=== PATIENT | male | born 1955 | race Asian ===

== ENCOUNTER 2022-06-28 06:30 | Emergency (ER) | payer OTHER ==
[~2022-06-28] VITALS: Ht 167.6 cm; Wt 72.6 kg
[2022-06-28 06:38] VITALS: BP 130/77
--- NOTE | 2022-06-28 06:38 | NUR ---
to bed ambulatory
--- NOTE | 2022-06-28 06:45 | NUR ---
Patient is seen by ER MD at the bedside.
--- NOTE | 2022-06-28 07:00 | NUR ---
Patient received on bed lying comfortably and awake. Alert and oriented x4. No acute distress. No complaints of pain or discomfort. Respirations even and unlabored.
--- NOTE | 2022-06-28 07:40 | NUR ---
# 18 FR Moore catheter with 10 ml utilizing sterile technique. Immediate return of 60 ml bright red urine noted. Bedside drainage bag placed below level of bladder. Urine sample collected and sent to lab. Pt tolerated procedure well. started moore irrigation, placed 500cc of sterile solution, 500cc of ross bright red colored fluid removed, at 50 cc, noted clear pink colored fluid removed. per ermd, stop irrigation and place leg bag. noted continued pink colored fluid in leg bag. no blood clots appreciable. ermd made aware
--- NOTE | 2022-06-28 07:42 | NUR ---
Patient being evaluated by physician at bedside.
--- NOTE | 2022-06-28 08:24 | NUR ---
SON AT BEDSIDE FOR RETURN DEMO FOR CARE OF THE LEG BAG, THE DRAINAGE OF THE BAG, PLACEMENT AND POSITIONING, PER SON, PT HAS AN APPOINTMENT WITH UROLOGIST ON 07/06/22
[2022-06-28 09:00] LABS: BILIRUBIN,URINE NEGATIVE (NEGATIVE); BLOOD, URINE 3+ (NEGATIVE); LEUKOCYTE ESTERASE ,URINE 2+ (NEGATIVE); NITRITE, URINE POSITIVE (NEGATIVE); PH,URINE 6.5 (5.0-9.0); UGLUCOSE TRACE (NEGATIVE)
[2022-06-28 09:07] LABS: APPEARANCE,URINE CLOUDY (CLEAR); COLOR,URINE BLOODY (YELLOW)
[2022-06-28] MEDS ORDERED: CIPR500T4 PO (09:11)
[2022-06-28 09:14] LABS: RBC,URINE >100 /HPF (0-5)
--- NOTE | 2022-06-28 09:22 | NUR ---
Patient discharged with v/s stable. Written and verbal after care instructions ABOUT INDWELLING CATHETER CARE, UTI , ACUTE URINARY RETENTION AND HEMATURIA given and explained. Patient alert, oriented and verbalized understanding of instructions. Ambulatory with steady gait. All questions addressed prior to discharge. ID band removed. Patient advised to follow up with PMD. Rx of CIPRO given. Patient educated on indication of medication including possible reaction and side effects. Opportunity to ask questions provided and answered.
[2022-06-28 09:23] VITALS: BP 130/69
== END 2022-06-28 09:21 | disposition home or self-care (01) ==
LOC: MED 06:30
DX: N30.01 Acute cystitis with hematuria (principal); R33.9 Retention of urine, unspecified; Z79.899 Other long term (current) drug therapy
CPT/HCPCS: 51702; 81001; 87086; 99284

== ENCOUNTER 2022-06-30 09:18 | Emergency (ER) | payer OTHER ==
[~2022-06-30] VITALS: Ht 167.6 cm; Wt 72.6 kg
[~2022-06-30 09:18] MED LIST: CIPR500T4 PO
[2022-06-30 09:40] VITALS: BP 135/86
--- NOTE | 2022-06-30 09:46 | NUR ---
PT AMB TO BED 1.
--- NOTE | 2022-06-30 10:59 | NUR ---
IRRIGATION PERFORMED ON 3 WAY VELAZQUEZ USING ASEPTIC TECHNIQUE, NOTED CLOTS ON THE VELAZQUEZ AND LEG BAG, PER DR SANDERS CONTINUE CONTINUOUS IRRIGATION.
--- NOTE | 2022-06-30 11:05 | NUR ---
# [address] Urinary catheter inserted utilizing sterile technique. Immediate return of 50 ml BLOODY urine noted. Urine sample collected and sent to lab. Pt tolerated procedure WELL.
[2022-06-30 12:50] VITALS: BP 122/74
--- NOTE | 2022-06-30 12:52 | NUR ---
Patient discharged with v/s stable. Written and verbal after care instructions given and explained. Patient verbalized understanding. Ambulatory with steady gait. All questions addressed prior to discharge. Advised to follow up with PMD. New leg bag in place after 3 way moore replaced and irrigated to clear. irrigation port with cath plug. advised pt to allow urine to drain by gravity, place below bladder especially when laying down. return for worsening bleeding, pain, no draining from moore catheter. ambulated out of Ed with steady gait with minimal discomfort, able to sit up unlike prior to arrival
== END 2022-06-30 12:50 | disposition home or self-care (01) ==
LOC: MED 09:18
DX: T83.091A Other mechanical complication of indwelling urethral catheter, initial encounter (principal); R31.9 Hematuria, unspecified; Z79.899 Other long term (current) drug therapy; Y84.6 Urinary catheterization as the cause of abnormal reaction of the patient, or of later complication, without mention of misadventure at the time of the procedure; Y92.89 Other specified places as the place of occurrence of the external cause
CPT/HCPCS: 51702; 81025; 99283; 99284